=== PATIENT | female | born 1960 | race Two or more races ===

== ENCOUNTER 2016-11-22 11:34 | Emergency (ER) | payer BC, OTHER ==
[~2016-11-22] VITALS: Ht 162.6 cm; Wt 88.0 kg
[2016-11-22 11:39] VITALS: BP 145/88
[2016-11-22] MEDS ORDERED: CLIN-44 PO (12:11)
--- NOTE | 2016-11-22 12:11 | PHYS DOC ---
Past Medical History Past Medical History: No Pertinent History Past Surgical History: No Surgical History Alcohol Use: None Drug Use: None Adult General Chief Complaint Chief Complaint: DENTAL PROBLEM [facility] HPI Patient is a 56 year old female presents to the emergency department stating that she is having right lower dental pain and discomfort. She states that she has a tooth that she believes is trying to come in, her wisdom tooth on the left lower back area. She has swelling to the left side of her face. She denies any fever, chills or any nausea or vomiting. She states that she was on amoxicillin at the end of September for dental infection was provided hydrocodone from [facility]. She states that she was waiting for them to return her call back in regards to her follow-up appointment in which she states they have not returned her call. She states that the swelling started again here within the last 3 or 4 days. She states that she has taken hydrocodone and ibuprofen with no relief. Patient states that she feels ibuprofen is given her the diarrhea. Patient denies any further complaints at this time. Review of Systems Review of Systems Constitutional: Denies fever or chills [] Eyes: Denies change in visual acuity, redness, or eye pain [] HENT: Denies nasal congestion or sore throat. Dental pain Respiratory: Denies cough or shortness of breath [] Cardiovascular: No additional information not addressed in HPI [] GI: Denies abdominal pain, nausea, vomiting, bloody stools or diarrhea [] : Denies dysuria or hematuria [] Musculoskeletal: Denies back pain or joint pain [] Integument: Denies rash or skin lesions [] Neurologic: Denies headache, focal weakness or sensory changes [] Endocrine: Denies polyuria or polydipsia [] Physical Exam Physical Exam Constitutional: Well developed, well nourished, no acute distress, non-toxic appearance. [] HENT: Normocephalic, atraumatic, bilateral external ears normal, oropharynx moist, no oral exudates, nose normal. Left lower dental area appears to be red swollen and tender appear to have a tooth that appears to be sideways and coming up. Eyes: PERRLA, EOMI, conjunctiva normal, no discharge. [] Neck: Normal range of motion, no tenderness, supple, no stridor. [] Cardiovascular:Heart rate regular rhythm, no murmur [] Lungs & Thorax: Bilateral breath sounds clear to auscultation [] Skin: Warm, dry, no erythema, no rash. [] Back: No tenderness Extremities: No tenderness, no cyanosis, no clubbing, ROM intact, no edema. [] Neurologic: Alert and oriented X 3, normal motor function, normal sensory function, no focal deficits noted. [] Psychologic: Affect normal, judgement normal, mood normal. [] Current Patient Data Vital Signs Vital Signs Date Time Temp Pulse Resp B/P (MAP) Pulse Ox O2 Delivery O2 Flow Rate FiO2 11/22/16 11:39 98.2 75 20 96 Room Air 98.2 EKG EKG [] Radiology/Procedures Radiology/Procedures [] Course & Med Decision Making Course & Med Decision Making Pertinent Labs and Imaging studies reviewed. (See chart for details) Spoke with patient regards to using ibuprofen 600-800 mg every 8 hours. Patient states that ibuprofen has been giving her diarrhea. Spoke with parent in regards to taking with food. Patient states she's been taken hydrocodone with no relief. She states that she still has hydrocodone at home. She is requesting something stronger for pain and discomfort. Explained to patient that normally here in the emergency department we do not provide narcotics for dental pain. However I we'll provide her with Percocet here in the emergency department and she'll be provided with antibiotic prescription. Recommended warm salt water mouth rinses 4 times a day and prior to bedtime. Also recommended patient to contact [facility] for follow-up. Signs and symptoms to return back to the emergency department. Dragon Disclaimer Dragon Disclaimer This electronic medical record was generated, in whole or in part, using a voice recognition dictation system. Departure Departure Impression: Primary Impression: Dental infection Disposition: HOME, SELF-CARE Condition: STABLE Referrals: NO PCP (PCP) Patient Instructions: Dental Abscess Additional Instructions: Activity as tolerated Medication as prescribed Continue home medications for pain Warm moist packs to the left jaw Warm salt water mouth rinses 4 times a day and prior to bedtime. Followup with dentist next week Return to the emergency department sign symptoms of become worse. Scripts Clindamycin Hcl (CLINDAMYCIN HCL) 150 Mg Capsule 3 CAP PO TID for 10 Days, CAP Prov: MODESTO ESPINO APRN 11/22/16 MODESTO ESPINO APRN November 22, 2016 12:11
[2016-11-22] MEDS ORDERED: oxyCODONE/APAP 5/325 1 TAB TABLET PO ONE (12:15)
[2016-11-22] MEDS ORDERED: oxyCODONE/APAP 5/325 1 TAB TABLET ONE (12:16)
== END 2016-11-22 12:21 | disposition home or self-care (01) ==
LOC: ER 11:34
DX: K04.7 Periapical abscess without sinus (principal)
CPT/HCPCS: 99283